=== PATIENT | female | born 1950 | race African-American/Black ===

== ENCOUNTER 2019-12-25 20:50 | Inpatient (IN) | payer MEDICARE, MEDICAID ==
[~2019-12-25] VITALS: Ht 162.6 cm; Wt 72.6 kg
[2019-12-25] MEDS ORDERED: ASPIRIN 81MG TABLET PO ONE (23:45)
[2019-12-25] MEDS ORDERED: KETOROLAC 15MG/ML VIAL IV ONE (23:45)
[2019-12-26 00:12] LABS: BASOPHILS % 0.9 % (0.0-2.0); HEMATOCRIT. 26.3 % (36.0-48.0); HEMOGLOBIN. 8.8 g/dL (12.0-16.0); LYMPHOCYTES % 15.1 % (20.0-50.0); MEAN CORPUSCULAR HEMOGLOBIN 28.6 pg (28.0-32.0); MEAN CORPUSCULAR VOLUME 85.2 fL (81.0-99.0); MEAN PLATELET VOLUME 6.4 fl (7.4-10.4); MONOCYTES % 11.4 % (2.0-8.0); NEUTROPHILS % 70.6 % (40.0-76.0); PLATELET 417 x1000/uL (130-400); RED BLOOD CELL COUNT 3.08 mill/uL (4.2-5.4)
[2019-12-26 00:18] LABS: CHLORIDE 106 mEq/L (98-107)
[2019-12-26] MEDS ORDERED: MORPHINE SULFATE 4 MG/ML CPJ (NOT FOR IM USE) IV NR (01:15)
[2019-12-26] MEDS ORDERED: ONDANSETRON HCL 4MG/2ML INJ IV PRN (06:15)
[2019-12-26] MEDS ORDERED: GUAIFENESIN 200MG/10ML SUGAR FREE UDC PO PRN (06:15)
[2019-12-26] MEDS ORDERED: ACETAMINOPHEN 325MG TABLET PO PRN (06:15)
[2019-12-26] MEDS ORDERED: DOCUSATE SODIUM 100MG CAPSULE PO PRN (06:15)
[2019-12-26] MEDS ORDERED: MAGNESIUM/ALUMINUM HYDROXIDE/SIMETHICONE 30ML UDC PO PRN (06:15)
[2019-12-26] MEDS ORDERED: AMLODIPINE 10MG TABLET ONE (09:29)
[2019-12-26] MEDS: AMLODIPINE 10MG TABLET PO SCH (09:30)
[2019-12-26] MEDS ORDERED: ENOXAPARIN 30MG/0.3ML SYR SUBCUT ONE (09:31)
[2019-12-26] MEDS: ENOXAPARIN 30MG/0.3ML SYR SUBCUT SCH (09:57)
[2019-12-26] MEDS: CLONIDINE 0.1MG TABLET PO PRN ×2 (13:36→22:24)
[2019-12-26] MEDS ORDERED: POTASSIUM CHLORIDE 20MEQ TABLET SR PO NR (13:39)
[2019-12-26] MEDS ORDERED: NICARDIPINE 40MG/200ML PREMIX 200 ML IV STA (13:42)
[2019-12-26] MEDS ORDERED: LEVETIRACETAM 500MG PREMIX 100 ML IV NR (13:45)
[2019-12-26] MEDS ORDERED: LEVETIRACETAM 500MG PREMIX 100 ML IV ONE (13:45)
[2019-12-26] MEDS ORDERED: DEXAMETHASONE 10 MG/ML VIAL IV ONE (13:45)
[2019-12-26 14:34] LABS: CREATINE KINASE 75 IU/L (26-192)
[2019-12-26 16:50] LABS: CLARITY URINE CLOUDY (CLEAR); COLOR URINE YELLOW (YELLOW); KETONES URINE TRACE (NEGATIVE); LEUKOCYTE ESTERASE URINE TRACE (NEGATIVE); NITRITE URINE NEGATIVE (NEGATIVE); OCCULT BLOOD URINE 1+ (NEGATIVE); PH URINE >=9.0 (4.5-8.0); PROTEIN URINE 2+ (NEGATIVE); SPECIFIC GRAVITY URINE 1.013 (1.005-1.030)
[2019-12-26] MEDS: HYDROCODONE/ACETAMINOPHEN 5/325MG TABLET PO PRN ×2 (17:51→23:06)
[2019-12-26] MEDS ORDERED: NICARDIPINE 40MG/200ML PREMIX 200 ML IV ONE (18:45)
[2019-12-26] MEDS: DEXAMETHASONE 4MG/ML 1ML VIAL IV SCH (22:24)
[2019-12-27] VITALS (7 sets, daily range): BP systolic 136–157; BP diastolic 70–89
[2019-12-27 05:27] LABS: CHLORIDE 110 mEq/L (98-107)
[2019-12-27 05:28] LABS: BASOPHILS % 0.6 % (0.0-2.0); HEMATOCRIT. 22.2 % (36.0-48.0); HEMOGLOBIN. 7.4 g/dL (12.0-16.0); LYMPHOCYTES % 13.6 % (20.0-50.0); MEAN CORPUSCULAR HEMOGLOBIN 28.4 pg (28.0-32.0); MEAN PLATELET VOLUME 6.6 fl (7.4-10.4); NEUTROPHILS % 81.8 % (40.0-76.0); PLATELET 406 x1000/uL (130-400); RED BLOOD CELL COUNT 2.58 mill/uL (4.2-5.4); RED CELL DISTRIBUTION WIDTH 16.5 % (11.6-14.6)
[2019-12-27 05:33] LABS: PHOSPHORUS 6.3 mg/dL (2.5-4.9)
[2019-12-27 05:35] LABS: LDL CHOLESTEROL 76 mg/dL (5-100)
[2019-12-27 05:36] LABS: HDL CHOLESTEROL 70 mg/dL (40-59)
[2019-12-27] MEDS: AMLODIPINE 10MG TABLET PO SCH (08:59)
[2019-12-27] MEDS: ENOXAPARIN 30MG/0.3ML SYR SUBCUT SCH (08:59)
[2019-12-27] MEDS: CITRIC ACID/SODIUM CITRATE SOLN 30ML UDC PO SCH ×2 (11:59→17:33)
[2019-12-27] MEDS: DEXAMETHASONE 4MG/ML 1ML VIAL IV SCH ×2 (11:59→17:33)
[2019-12-27] MEDS: LEVETIRACETAM 500MG TABLET PO SCH (20:39)
[2019-12-27] MEDS: HYDROCODONE/ACETAMINOPHEN 5/325MG TABLET PO PRN (21:18)
[2019-12-27] MEDS: CLONIDINE 0.1MG TABLET PO PRN (23:11)
[2019-12-28] VITALS (12 sets, daily range): BP systolic 115–169; BP diastolic 54–97
[2019-12-28] MEDS: DEXAMETHASONE 4MG/ML 1ML VIAL IV SCH ×5 (00:10→23:41)
[2019-12-28] MEDS: SODIUM CHLORIDE 0.45% 1,000 ML IV SCH ×2 (00:15→12:22)
[2019-12-28 06:58] LABS: HEMOGLOBIN. 7.7 g/dL (12.0-16.0); MEAN CORPUSCULAR HEMOGLOBIN 28.3 pg (28.0-32.0); MEAN PLATELET VOLUME 6.6 fl (7.4-10.4); PLATELET 408 x1000/uL (130-400); RED BLOOD CELL COUNT 2.71 mill/uL (4.2-5.4); RED CELL DISTRIBUTION WIDTH 16.1 % (11.6-14.6)
[2019-12-28] MEDS: CITRIC ACID/SODIUM CITRATE SOLN 30ML UDC PO SCH ×3 (08:42→17:59)
[2019-12-28] MEDS: ENOXAPARIN 30MG/0.3ML SYR SUBCUT SCH (08:43)
[2019-12-28] MEDS: AMLODIPINE 10MG TABLET PO SCH (08:44)
[2019-12-28] MEDS: LEVETIRACETAM 500MG TABLET PO SCH ×2 (08:44→20:50)
[2019-12-28] MEDS: HYDROCODONE/ACETAMINOPHEN 5/325MG TABLET PO PRN ×2 (12:21→20:50)
[2019-12-28 16:27] LABS: PLATELET ESTIMATE INCREASED
[2019-12-29] VITALS (11 sets, daily range): BP systolic 130–169; BP diastolic 63–97
[2019-12-29] MEDS: SODIUM CHLORIDE 0.45% 1,000 ML IV SCH ×3 (02:15→23:12)
[2019-12-29] MEDS: HYDROCODONE/ACETAMINOPHEN 5/325MG TABLET PO PRN ×2 (03:42→20:30)
[2019-12-29] MEDS: DEXAMETHASONE 4MG/ML 1ML VIAL IV SCH ×4 (06:16→23:11)
[2019-12-29] MEDS: LEVETIRACETAM 500MG TABLET PO SCH ×2 (09:23→20:30)
[2019-12-29] MEDS: CITRIC ACID/SODIUM CITRATE SOLN 30ML UDC PO SCH ×3 (09:23→17:21)
[2019-12-29] MEDS: AMLODIPINE 10MG TABLET PO SCH (09:24)
[2019-12-29] MEDS: ENOXAPARIN 30MG/0.3ML SYR SUBCUT SCH (09:26)
[2019-12-30] VITALS: BP 160/74
[2019-12-30 04:00] VITALS: BP 153/86
[2019-12-30] MEDS: DEXAMETHASONE 4MG/ML 1ML VIAL IV SCH ×4 (05:06→23:40)
[2019-12-30] MEDS: HYDROCODONE/ACETAMINOPHEN 5/325MG TABLET PO PRN ×2 (05:07→20:54)
[2019-12-30 08:00] VITALS: BP 164/73
[2019-12-30 08:14] LABS: PHOSPHORUS 3.5 mg/dL (2.5-4.9)
[2019-12-30] MEDS: CITRIC ACID/SODIUM CITRATE SOLN 30ML UDC PO SCH ×3 (08:38→17:20)
[2019-12-30] MEDS: LEVETIRACETAM 500MG TABLET PO SCH ×2 (08:39→20:53)
[2019-12-30] MEDS: AMLODIPINE 10MG TABLET PO SCH (08:40)
[2019-12-30] MEDS: ENOXAPARIN 30MG/0.3ML SYR SUBCUT SCH (08:40)
[2019-12-30] MEDS: SODIUM CHLORIDE 0.45% 1,000 ML IV SCH (11:05)
[2019-12-30 12:00] VITALS: BP 126/86
[2019-12-30 16:00] VITALS: BP 145/71
[2019-12-30 20:00] VITALS: BP 150/80
[2019-12-31] VITALS: BP 151/97
[2019-12-31] MEDS: SODIUM CHLORIDE 0.45% 1,000 ML IV SCH (01:45)
[2019-12-31 04:00] VITALS: BP 204/135
[2019-12-31] MEDS: CLONIDINE 0.1MG TABLET PO PRN ×2 (04:05→14:09)
[2019-12-31] MEDS: HYDROCODONE/ACETAMINOPHEN 5/325MG TABLET PO PRN (04:12)
[2019-12-31] MEDS: DEXAMETHASONE 4MG/ML 1ML VIAL IV SCH ×2 (05:16→12:42)
[2019-12-31 06:08] VITALS: BP 132/75
[2019-12-31 06:55] LABS: HEMATOCRIT. 22.3 % (36.0-48.0); HEMOGLOBIN. 7.4 g/dL (12.0-16.0); MEAN CORPUSCULAR HEMOGLOBIN 28.1 pg (28.0-32.0); MEAN CORPUSCULAR VOLUME 84.4 fL (81.0-99.0); MEAN PLATELET VOLUME 6.4 fl (7.4-10.4); PLATELET 376 x1000/uL (130-400); RED BLOOD CELL COUNT 2.64 mill/uL (4.2-5.4); RED CELL DISTRIBUTION WIDTH 16.6 % (11.6-14.6)
[2019-12-31 08:00] VITALS: BP 145/73
[2019-12-31] MEDS: CITRIC ACID/SODIUM CITRATE SOLN 30ML UDC PO SCH ×2 (08:50→12:42)
[2019-12-31] MEDS: AMLODIPINE 10MG TABLET PO SCH (08:50)
[2019-12-31] MEDS: LEVETIRACETAM 500MG TABLET PO SCH (08:51)
[2019-12-31] MEDS: ENOXAPARIN 30MG/0.3ML SYR SUBCUT SCH (08:52)
[2019-12-31 12:00] VITALS: BP 162/70
[2019-12-31 13:14] VITALS: BP 143/99
[2019-12-31 13:55] LABS: PLATELET ESTIMATE NORMAL
== END 2019-12-31 15:50 | disposition hospice, home (50) | DRG 687 ==
LOC: ER 20:50 → ENRESERV 12-26 13:03 → EDBEDREQSVC 12-26 13:55 → EDBEDREQTM 12-26 13:55 → EDBEDREQ 12-26 13:55 → MICUSO 12-26 22:10 → 5EST 12-27 11:21
PROVIDERS: ADMIT Hospitalist; ATTEND Hospitalist
DX: C64.9 Malignant neoplasm of unspecified kidney, except renal pelvis (principal); C79.31 Secondary malignant neoplasm of brain; N17.9 Acute kidney failure, unspecified; E44.0 Moderate protein-calorie malnutrition; G81.94 Hemiplegia, unspecified affecting left nondominant side; D64.9 Anemia, unspecified; E86.9 Volume depletion, unspecified; E87.6 Hypokalemia; I12.9 Hypertensive chronic kidney disease with stage 1 through stage 4 chronic kidney disease, or unspecified chronic kidney disease; N18.9 Chronic kidney disease, unspecified; Z85.528 Personal history of other malignant neoplasm of kidney; Z88.0 Allergy status to penicillin; Z88.2 Allergy status to sulfonamides; Z91.030 Bee allergy status; Z68.27 Body mass index [BMI] 27.0-27.9, adult; Z03.818 Encounter for observation for suspected exposure to other biological agents ruled out
CPT/HCPCS: 36415; 70551; 71045; 76770; 80048; 80053; 80061; 81003; 82550; 83735; 83880; 84100; 84484; 85025; 93005; 93970; 97110; 97162; 97530; 99285; J1100; J1650; J1885; J1953; J2405; C9803-CS; U0003-CS

== ENCOUNTER 2020-01-08 12:23 | Inpatient (IN) | payer MEDICARE, MEDICAID ==
[~2020-01-08] VITALS: Ht 162.6 cm; Wt 68.0 kg
[2020-01-08] MEDS ORDERED: MEROPENEM 1,000 MG in SODIUM CHLORIDE 0.9% 100 ML IV STA (12:34)
[2020-01-08] MEDS ORDERED: SODIUM CHLORIDE 0.9% 1,000 ML IV ONE (12:34)
[2020-01-08] MEDS ORDERED: VANCOMYCIN 1 G PREMIX 200 ML IV ONE (12:45)
[2020-01-08] MEDS ORDERED: PROPOFOL 10MG/ML 100ML 100 ML IV ONE (12:45)
[2020-01-08] MEDS ORDERED: ETOMIDATE 2MG/ML 10ML VIAL IV ONE (12:45)
[2020-01-08] MEDS ORDERED: SUCCINYLCHOLINE CHLORIDE 200MG/10ML IV ONE (12:45)
[2020-01-08] MEDS ORDERED: SODIUM CHLORIDE 0.9% 1000ML BAG (SEPSIS BOLUS) IV ONE (12:45)
[2020-01-08] MEDS ORDERED: FENTANYL CITRATE/PF 50MCG/ML 2ML VIAL IV ONE (12:45)
[2020-01-08 12:47] LABS: HEMATOCRIT. 23.1 % (36.0-48.0); HEMOGLOBIN. 7.4 g/dL (12.0-16.0); MEAN CORPUSCULAR HEMOGLOBIN 27.4 pg (28.0-32.0); MEAN CORPUSCULAR VOLUME 85.8 fL (81.0-99.0); MEAN PLATELET VOLUME 6.3 fl (7.4-10.4); PLATELET 423 x1000/uL (130-400); RED BLOOD CELL COUNT 2.69 mill/uL (4.2-5.4); RED CELL DISTRIBUTION WIDTH 17.8 % (11.6-14.6)
[2020-01-08 12:54] LABS: CHLORIDE 122 mEq/L (98-107)
[2020-01-08 13:04] LABS: CREATINE KINASE 132 IU/L (26-192)
[2020-01-08 13:28] LABS: PLATELET ESTIMATE SLIGHTLY INCREASED
[2020-01-08 13:30] LABS: INR 1.1; PROTHROMBIN TIME 11.4 sec (9.6-11.0)
[2020-01-08 13:35] LABS: C REACTIVE PROTEIN QUANT > 190.0 mg/L (0.0-3.0)
[2020-01-08 13:55] LABS: FIBRINOGEN > 900 mg/dL (200-400)
[2020-01-08] MEDS ORDERED: ACETAMINOPHEN 650MG SUPP PR ONE (14:00)
[2020-01-08 14:11] LABS: BG BASE EXCESS -13.1 mmol/L (-2.0-2.0); BG CARBOXYHEMOGLOBIN 0.3 % (0.5-1.5); BG DEOXYHEMOGLOBIN 2.3 % (0.0-5.0); BG FRACTION INSPIRED OXYGEN 100; BG HCO3 ACT 12.1 mmol/L (22.0-26.0); BG METHEMOGLOBIN 0.3 % (0.0-1.5); BG OXYGEN SATURATION 97.7 % (92.0-98.5); BG OXYHEMOGLOBIN 97.1 % (94.0-97.0); BG PCO2 25.1 mmHg (35.0-45.0); BG PO2 114.6 mmHg (75.0-100.0); BG SAMPLE SITE RIGHT RADIAL; BG TIDAL VOLUME(mL) 500 mL; BG TOTAL HEMOGLOBIN 7.1 g/dL (12.0-18.0); BG VENT MODE VENT - A/C; BG VENT RATE 14 set
[2020-01-08 14:12] LABS: CLARITY URINE TURBID (CLEAR); COLOR URINE YELLOW (YELLOW); KETONES URINE TRACE (NEGATIVE); LEUKOCYTE ESTERASE URINE 2+ (NEGATIVE); NITRITE URINE POSITIVE (NEGATIVE); OCCULT BLOOD URINE 2+ (NEGATIVE); PROTEIN URINE 3+ (NEGATIVE); SPECIFIC GRAVITY URINE 1.019 (1.005-1.030)
[2020-01-08] MEDS ORDERED: IPRATROPIUM/ALBUTEROL 0.5-3(2.5)MG/3ML NEB HHN PRN (16:00)
[2020-01-08] MEDS ORDERED: SODIUM BICARBONATE 8.4% 1 MEQ/ML 50ML SYR IV NR (16:00)
[2020-01-08] MEDS ORDERED: PROPOFOL 10MG/ML 100ML 100 ML IV PRN (16:00)
[2020-01-08] MEDS ORDERED: CLONIDINE 0.1MG TABLET PO PRN (16:15)
[2020-01-08] MEDS ORDERED: MORPHINE SULFATE 2 MG/ML CPJ (NOT FOR IM USE) IV PRN (16:15)
[2020-01-08] MEDS ORDERED: ACETAMINOPHEN 325MG TABLET PO PRN (16:15)
[2020-01-08] MEDS ORDERED: ONDANSETRON HCL 4MG/2ML INJ IV PRN (16:15)
[2020-01-08] MEDS ORDERED: PIPERACILLIN/TAZOBACTAM 3.375 G in DEXT 5% WATER 100 ML IV SCH (16:15)
[2020-01-08] MEDS: PANTOPRAZOLE SODIUM 40 MG/VIAL IV SCH (16:56)
[2020-01-08] MEDS ORDERED: SODIUM BICARBONATE 100 MEQ in DEXTROSE 5% WATER 900 ML IV SCH (17:00)
[2020-01-08] MEDS ORDERED: LEVOFLOXACIN 500MG PREMIX 100 ML IV SCH (17:00)
[2020-01-08] MEDS: DEXT 5%/0.45% NACL 1000ML 1,000 ML IV SCH (17:08)
[2020-01-08] MEDS ORDERED: SODIUM BICARBONATE 8.4% MEQ/ML 50ML VIAL IV ONE (17:17)
[2020-01-08] MEDS: METRONIDAZOLE 500 MG PREMIX 100 ML IV SCH (17:31)
[2020-01-08] MEDS ORDERED: IPRATROPIUM/ALBUTEROL 0.5-3(2.5)MG/3ML NEB HHN SCH (18:00)
[2020-01-09] MEDS: METRONIDAZOLE 500 MG PREMIX 100 ML IV SCH ×3 (02:00→18:32)
[2020-01-09 05:29] LABS: MEAN CORPUSCULAR HEMOGLOBIN 27.3 pg (28.0-32.0); MEAN CORPUSCULAR VOLUME 84.6 fL (81.0-99.0); MEAN PLATELET VOLUME 6.2 fl (7.4-10.4); PLATELET 361 x1000/uL (130-400); RED BLOOD CELL COUNT 2.38 mill/uL (4.2-5.4); RED CELL DISTRIBUTION WIDTH 17.7 % (11.6-14.6)
[2020-01-09 05:31] LABS: CHLORIDE 120 mEq/L (98-107)
[2020-01-09] MEDS: DEXT 5%/0.45% NACL 1000ML 1,000 ML IV SCH (05:32)
[2020-01-09 05:36] LABS: HEMATOCRIT. 20.1 % (36.0-48.0); HEMOGLOBIN. 6.5 g/dL (12.0-16.0)
[2020-01-09 09:08] LABS: BG BASE EXCESS -4.3 mmol/L (-2.0-2.0); BG CARBOXYHEMOGLOBIN 0.3 % (0.5-1.5); BG DEOXYHEMOGLOBIN 6.4 % (0.0-5.0); BG FRACTION INSPIRED OXYGEN 70; BG HCO3 ACT 19.3 mmol/L (22.0-26.0); BG METHEMOGLOBIN 0.3 % (0.0-1.5); BG OXYGEN SATURATION 93.6 % (92.0-98.5); BG PCO2 29.1 mmHg (35.0-45.0); BG PH 7.439 (7.350-7.450); BG PO2 69.3 mmHg (75.0-100.0); BG SAMPLE SITE RIGHT RADIAL; BG TIDAL VOLUME(mL) 500 mL; BG TOTAL HEMOGLOBIN 7.3 g/dL (12.0-18.0); BG VENT MODE VENT - A/C; BG VENT RATE 16 set
[2020-01-09] MEDS: PANTOPRAZOLE SODIUM 40 MG/VIAL IV SCH (09:46)
[2020-01-09] MEDS ORDERED: VANCOMYCIN 750 MG PREMIX 150 ML IV NR (10:00)
[2020-01-09] MEDS: DEXTROSE 5% WATER 1,000 ML IV SCH (10:30)
[2020-01-09 11:08] LABS: CREATINE KINASE 62 IU/L (26-192)
[2020-01-09 17:23] LABS: PLATELET ESTIMATE NORMAL
[2020-01-10] VITALS (60 sets, daily range): BP systolic 117–186; BP diastolic 71–108
[2020-01-10] MEDS: METRONIDAZOLE 500 MG PREMIX 100 ML IV SCH (02:45)
[2020-01-10] MEDS: PROPOFOL 10MG/ML 100ML 100 ML IV PRN ×2 (03:07→07:38)
[2020-01-10] MEDS: DEXTROSE 5% WATER 1,000 ML IV SCH (05:46)
[2020-01-10 06:08] LABS: HEMATOCRIT. 34.2 % (36.0-48.0); HEMOGLOBIN. 11.5 g/dL (12.0-16.0); MEAN CORPUSCULAR HEMOGLOBIN 28.5 pg (28.0-32.0); MEAN CORPUSCULAR VOLUME 84.9 fL (81.0-99.0); MEAN PLATELET VOLUME 6.5 fl (7.4-10.4); PLATELET 329 x1000/uL (130-400); RED BLOOD CELL COUNT 4.03 mill/uL (4.2-5.4); RED CELL DISTRIBUTION WIDTH 15.5 % (11.6-14.6)
[2020-01-10 07:40] LABS: BG BASE EXCESS -2.3 mmol/L (-2.0-2.0); BG CARBOXYHEMOGLOBIN 0.3 % (0.5-1.5); BG DEOXYHEMOGLOBIN 2.1 % (0.0-5.0); BG FRACTION INSPIRED OXYGEN 70; BG HCO3 ACT 20.9 mmol/L (22.0-26.0); BG METHEMOGLOBIN 0.2 % (0.0-1.5); BG OXYGEN SATURATION 97.9 % (92.0-98.5); BG OXYHEMOGLOBIN 97.4 % (94.0-97.0); BG PCO2 30.9 mmHg (35.0-45.0); BG PH 7.448 (7.350-7.450); BG PO2 107.8 mmHg (75.0-100.0); BG SAMPLE SITE RIGHT RADIAL; BG TIDAL VOLUME(mL) 500 mL; BG TOTAL HEMOGLOBIN 11.2 g/dL (12.0-18.0); BG VENT MODE VENT - A/C; BG VENT RATE 16 set
[2020-01-10] MEDS: PANTOPRAZOLE SODIUM 40 MG/VIAL IV SCH (09:22)
[2020-01-10] MEDS ORDERED: METRONIDAZOLE 500 MG PREMIX 100 ML IV SCH (10:00)
[2020-01-10] MEDS: MORPHINE SULFATE 250 MG in DEXT 5% WATER 240 ML IV PRN (13:46)
[2020-01-10] MEDS ORDERED: LEVOFLOXACIN 250MG PREMIX 50 ML IV SCH ×2 (17:00)
[2020-01-11] VITALS (25 sets, daily range): BP systolic 109–140; BP diastolic 65–85
[2020-01-11 08:18] LABS: PLATELET ESTIMATE NORMAL
[2020-01-12] VITALS: BP 121/70
[2020-01-12 04:00] VITALS: BP 110/67
[2020-01-12] MEDS: MORPHINE SULFATE 250 MG in DEXT 5% WATER 240 ML IV PRN (04:27)
[2020-01-12 08:00] VITALS: BP 97/60
[2020-01-12 12:00] VITALS: BP 105/59
[2020-01-12 16:00] VITALS: BP 101/54
[2020-01-12 20:00] VITALS: BP 98/54
[2020-01-13] VITALS: BP 89/50
[2020-01-13 04:00] VITALS: BP 91/50
[2020-01-13 08:00] VITALS: BP 101/50
[2020-01-13 12:00] VITALS: BP 116/65
[2020-01-13 12:09] VITALS: BP 116/65
[2020-01-13 15:30] VITALS: BP 70/40
== END 2020-01-13 19:03 | disposition expired | DRG 871 ==
LOC: ER 12:23 → MICUSO 13:43 → EDBEDREQ 13:47 → EDBEDREQTM 13:47 → EDBEDREQSVC 13:51 → CVICU 01-10 05:20 → 6EST 01-11 05:30
PROVIDERS: ADMIT Hospitalist; ATTEND Hospitalist
PROC: 5A1945Z Respiratory Ventilation, 24-96 Consecutive Hours (ICD-10-PCS; principal; 2020-01-08)
PROC: 0BH17EZ Insertion of Endotracheal Airway into Trachea, Via Natural or Artificial Opening (ICD-10-PCS; 2020-01-08)
PROC: 06HY33Z Insertion of Infusion Device into Lower Vein, Percutaneous Approach (ICD-10-PCS; 2020-01-08)
PROC: B54BZZA Ultrasonography of Right Lower Extremity Veins, Guidance (ICD-10-PCS; 2020-01-08)
PROC: 30233N1 Transfusion of Nonautologous Red Blood Cells into Peripheral Vein, Percutaneous Approach (ICD-10-PCS; 2020-01-09)
DX: A41.9 Sepsis, unspecified organism (principal); J96.01 Acute respiratory failure with hypoxia; J69.0 Pneumonitis due to inhalation of food and vomit; N17.0 Acute kidney failure with tubular necrosis; N39.0 Urinary tract infection, site not specified; E87.0 Hyperosmolality and hypernatremia; C79.31 Secondary malignant neoplasm of brain; C64.9 Malignant neoplasm of unspecified kidney, except renal pelvis; G93.49 Other encephalopathy; G81.94 Hemiplegia, unspecified affecting left nondominant side; N18.9 Chronic kidney disease, unspecified; R65.20 Severe sepsis without septic shock; E87.5 Hyperkalemia; D64.9 Anemia, unspecified; Z20.828 Contact with and (suspected) exposure to other viral communicable diseases; Z66 Do not resuscitate; Z51.5 Encounter for palliative care; I12.9 Hypertensive chronic kidney disease with stage 1 through stage 4 chronic kidney disease, or unspecified chronic kidney disease; Z88.0 Allergy status to penicillin; Z88.2 Allergy status to sulfonamides; Z91.030 Bee allergy status
CPT/HCPCS: 36415; 36600; 71045; 76770; 80048; 80053; 80202; 81003; 82375; 82550; 82570; 82728; 82805; 82962; 83605; 83615; 84145; 84156; 84478; 84484; 85025; 85379; 85384; 86140; 86850; 86900; 86920; 87070; 87077; 87186; 93005; 94002; 94003; 94640; 99291; C9113; J1956; J2185; J2274; J2405; J2704; J3010; J3370; J3490; J7030; J7050; J7060; J7070; P9016; C9803-CS; U0003-CS